=== PATIENT | female | born 1990 ===

== ENCOUNTER 2022-10-06 08:18 | Outpatient (CLI) | payer BC | END 2022-10-06 08:19 | disposition home or self-care (01) | LOC: BICMAMMO 08:18 | PROVIDERS: ATTEND Obstetrics & Gynecology | DX: D24.1 Benign neoplasm of right breast (principal); D24.2 Benign neoplasm of left breast; R92.8 Other abnormal and inconclusive findings on diagnostic imaging of breast; N63.10 Unspecified lump in the right breast, unspecified quadrant; N63.20 Unspecified lump in the left breast, unspecified quadrant | CPT/HCPCS: 77066; G0279 ==